=== PATIENT | male | born 1990 | race Caucasian/White ===

== ENCOUNTER 2021-12-09 03:18 | Emergency (ER) | payer OTHER ==
[~2021-12-09 03:18] MED LIST: NORCO 5-325 TA1 EACH PO
== END 2021-12-09 03:52 | disposition home or self-care (01) ==
LOC: FER 03:18
DX: H16.133 Photokeratitis, bilateral (principal); W89.8XXA Exposure to other man-made visible and ultraviolet light, initial encounter
CPT/HCPCS: 99283